=== PATIENT | female | born 1965 | race Hispanic/Latino ===

== ENCOUNTER 2017-04-20 06:13 | Day surgery (SDC) | payer MEDICARE, OTHER ==
[2017-04-06 09:52] VITALS: BMI 35.6
[~2017-04-20 06:13] MED LIST: Phenylephrine 2.5% Opht Soln OD SCH; Tropicamide 1% Opht SOLUTION OD SCH
[2017-04-20] MEDS ORDERED: Tobramycin/Dexamethasone OPHT OINT ONE (07:40)
[2017-04-20] MEDS ORDERED: Povidone Iodine Ophthalmic 5% Soln ONE (07:40)
[2017-04-20] MEDS ORDERED: Carbachol 0.01% IO ONE (07:40)
[2017-04-20] MEDS ORDERED: Chondroitin/Hyaluronate Opth Syringe KIT (0.55 ml-0.5 ml) IO ONE (07:40)
[2017-04-20] MEDS ORDERED: Tetracaine 0.5% Ophth (OR ONLY) ONE (07:40)
[2017-04-20] MEDS ORDERED: Lidocaine 2% Inj (20ml) ONE (07:40)
[2017-04-20] MEDS ORDERED: Hyaluronidase Human, Recombi 150 U/ML VIAL ONE (07:41)
[2017-04-20] MEDS ORDERED: Propofol 10 mg/ml Inj (20 ML) ONE (09:24)
[2017-04-20] MEDS ORDERED: Lactated Ringer's 500 ML IV ONE (09:25)
[2017-04-20] MEDS ORDERED: White Petrolatum/Mineral Oil Ophth Oint(3.5 gm) ONE (09:53)
[2017-04-20] MEDS ORDERED: Chondroitin/Hyaluronate 40 mg/ml-30 mg/ml Ophth Syringe (0.5 ml) IO ONE ×2 (10:05→10:14)
[2017-04-20 11:54] VITALS: TEMP 97.1; O2SAT 100
[2017-04-20 11:58] VITALS: BP 118/74; PULSE 100; RESP 18
--- NOTE | 2017-04-21 19:53 | OP ---
PROCEDURE DATE: 04/20/2017 PREOPERATIVE DIAGNOSIS: Hypermature cataract, right eye. POSTOPERATIVE DIAGNOSIS: Hypermature cataract, right eye. OPERATIVE PROCEDURE: Complex cataract surgery due to hypermaturity using VisionBlue, right eye with lens implant. SURGEON: Сергей Belcher MD TYPE OF ANESTHESIA: Retrobulbar block. COMPLICATIONS: None. PROCEDURE IN DETAIL: The patient was brought to the operating room and properly identified. Anesthesia staff administered intravenous sedation and retrobulbar block was given to the surgical eye. The patient was then prepped and draped in the usual sterile fashion. Attention was turned to the surgical eye. A lid speculum was placed into interpalpebral fissure. Sitting temporally, two paracentesis incisions were made. The anterior chamber was filled with viscoelastic and a triplanar clear corneal incision was made. Using a cystitome, anterior capsular leaflet was created. Utrata forceps were used to create a continuous curvilinear capsulorrhexis. Balanced salt solution on a cannula was used to hydrodissect and hydrodelineate the lens. The lens was then phacoemulsified with no complications. Automated irrigation and aspiration was used to remove the cortex. Viscoelastic was used to deepen the anterior chamber. The lens was placed in the capsular bag. Automated irrigation and aspiration was used to remove the viscoelastic. The anterior chamber was filled with Miochol. The wounds were hydrated with balanced salt solution. There was noted to be no leak at the end of the case and the lens was well positioned. The lid speculum was removed. The eye was given antibiotics and steroids and covered with a patch and shield. The patient was returned to the recovery room in stable condition. ADDENDUM: VisionBlue was used to highlight the anterior capsule. Careful continuous curvilinear capsulorrhexis was then created with no complications. Сергей Belcher MD
== END 2017-04-20 12:10 | disposition home or self-care (01) ==
LOC: C.SDS 06:13
PROVIDERS: ATTEND Ophthalmology
DX: H25.11 Age-related nuclear cataract, right eye (principal)
CPT/HCPCS: 66984; J2001; J2405; J2704; J3010; J3470; J7120; V2632